=== PATIENT | male | born 1990 | race American Indian/Alaskan Native ===

== ENCOUNTER 2019-06-13 20:37 | Emergency (ER) | payer MEDICARE ==
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
--- NOTE | 2019-06-13 22:06 | XRay Report ---
CHEST 1 VIEW 9:41 PM INDICATION / CLINICAL INFORMATION: Medical Clearance Psych. COMPARISON: None available. FINDINGS: SUPPORT DEVICES: None. HEART / MEDIASTINUM: The heart size and pulmonary vasculature are normal. LUNGS / PLEURA: No significant pulmonary or pleural abnormality. No pneumothorax. ADDITIONAL FINDINGS: No significant additional findings. IMPRESSION: No acute findings. Signer Name: Jomar Iniguez MD Signed: 06/13/2019 10:01 PM Workstation Name: [id number]
--- NOTE | 2019-06-13 22:32 | Cat Scan Report ---
CT OF THE HEAD WITHOUT CONTRAST INDICATION / CLINICAL INFORMATION: Medical Clearance Psych. TECHNIQUE: All CT scans at this location are performed using CT dose reduction for ALARA by means of automated e xposure control. COMPARISON: None available. FINDINGS: The ventricular system is normal in size and configuration. No focal lesion or mass effect is seen. T here is no evidence of intracranial hemorrhage or major vessel occlusion. The visualized paranasal si nuses and mastoid air cells are clear. IMPRESSION: Negative study. Signer Name: Jomar Iniguez MD Signed: 06/13/2019 10:28 PM Workstation Name: [id number]
[2019-06-13 22:40] LABS: Hematocrit 49.9 % (35.5-45.6); Hemoglobin 16.2 gm/dl (11.8-15.2); Mean Corpuscular HGB Conc 33 % (32-34); Mean Corpuscular Volume 97 fl (84-94); Red Blood Count 5.16 M/mm3 (3.65-5.03); Red Cell Distribution Width 13.8 % (13.2-15.2)
[2019-06-13 22:48] LABS: Platelet Count 184 K/mm3 (140-440)
[2019-06-13 22:58] LABS: Alanine Aminotransferase 13 units/L (7-56); Albumin 4.9 g/dL (3.9-5); BUN/Creatinine Ratio 11; Blood Urea Nitrogen 10 mg/dL (9-20); Calcium 9.5 mg/dL (8.4-10.2); Hemolysis Index 17
[2019-06-13 23:09] LABS: Hepatitis B Surface Antigen Non-Reactive (Negative); Hepatitis C Virus Antibody Non-Reactive (NonReactive)
[2019-06-14 02:43] LABS: Amphetamine Screen,Urine PRESUMPTIVE NEGATIVE; Cocaine Screen,Urine PRESUMPTIVE NEGATIVE; Methadone Screen,Urine PRESUMPTIVE NEGATIVE; Opiate Screen,Urine PRESUMPTIVE NEGATIVE
[2019-06-14 03:36] LABS: Benzodiazepines Screen,Urine PRESUMPTIVE POSITIVE; Cannabinoid Screen,Urine PRESUMPTIVE POSITIVE
[2019-06-14] MEDS ORDERED: ACETAMINOPHEN 325 MG TAB ONE (04:00)
[2019-06-14] MEDS ORDERED: ACETAMINOPHEN 325 MG TAB PO ONE (04:00)
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
[2019-06-14 21:09] VITALS: BP 135/92
== END 2019-06-14 21:10 | disposition home or self-care (01) ==
LOC: EEVIPCON 20:37 → ED 20:37
DX: F19.10 Other psychoactive substance abuse, uncomplicated (principal); F32.9 Major depressive disorder, single episode, unspecified; F41.9 Anxiety disorder, unspecified; R41.82 Altered mental status, unspecified
CPT/HCPCS: 36415; 70450; 71045; 80053; 80074; 80164; 80178; 80307; 80320; 85027; 86689; 93005; 93010; 99285; G0480

== ENCOUNTER 2019-06-25 12:14 | Emergency (ER) | payer MEDICARE ==
[2019-06-25 13:10] VITALS: BP 122/71
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
== END 2019-06-25 18:15 | disposition left against medical advice (07) ==
LOC: ED 12:14
DX: S69.91XA Unspecified injury of right wrist, hand and finger(s), initial encounter (principal); J06.9 Acute upper respiratory infection, unspecified; F41.9 Anxiety disorder, unspecified; Z21 Asymptomatic human immunodeficiency virus [HIV] infection status; X58.XXXA Exposure to other specified factors, initial encounter; Y93.89 Activity, other specified; Y92.89 Other specified places as the place of occurrence of the external cause; Y99.8 Other external cause status
CPT/HCPCS: 99282